=== PATIENT | female | born 1960 | race Caucasian/White ===

== ENCOUNTER 2019-04-13 22:52 | Emergency (ER) | payer SELFPAY ==
[~2019-04-13] VITALS: Ht 172 cm; Wt 98.0 kg
[~2019-04-13 22:52] MED LIST: HYDR1TAB PO; ONDA-43 PO
[2019-04-13] MEDS ORDERED: LACTATED RINGERS 1,000 ML IV ONE (23:27)
[2019-04-13] MEDS ORDERED: KETOROLAC 30 MG/ML VIAL ONE (23:27)
[2019-04-13] MEDS ORDERED: PANTOPRAZOLE 40 MG (PROTONIX) VIAL ONE (23:28)
[2019-04-14] MEDS ORDERED: LACTATED RINGERS 1,000 ML IV ONE (00:01)
[2019-04-14] MEDS ORDERED: PANTOPRAZOLE 40 MG (PROTONIX) VIAL IV ONE (00:15)
[2019-04-14] MEDS ORDERED: KETOROLAC 30 MG/ML VIAL IVP ONE (00:15)
--- NOTE | 2019-04-14 00:16 | ED Abdominal Pain ---
General Chief Complaint: Abdominal/GI Problems Stated Complaint: ABD PAIN Nursing Triage Note: Pt ambulates to RM 5 with c/o epigastric pain x 1 day. Pt reports decreased appetite and intermittent nausea as well. Pt denies any vomiting, fever/chills. 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 Sepsis Screen: No Definite Risk Source of Information: Patient Exam Limitations: No Limitations History of Present Illness Date Seen by Provider: Apr 13, 2019 Time Seen by Provider: 23:10 Initial Comments Patient presents to ER by private conveyance with chief complaint of epigastric abdominal pain starting yesterday progressively getting worse. She took some antacids as well as acid reducers [id number] with no relief of symptoms. She tried some Tylenol and ibuprofen which did give her minimal relief of pain while. She has not had any in the past 8 hours. She says the pain is only gotten worse. She has not had any trauma. Pain is nothing to do with when she eats or drinks. Yesterday she did not eat or drink all day until the evening and the pain persisted. Last oral intake Sprite approximately 2200, one hour prior. She has had 2 sections, ovarian cyst removal as well as a separate hysterectomy and appendectomy. She still has her gallbladder. She has no history of pancreatitis. She drinks only rarely. No history of diabetes or hypertriglyceridemia. She says most of her pain is located in her upper stomach. She says sometimes it radiates dull towards her back. She does not have any tearing sensation. No dysuria, dyspareunia or discharge. She has not had any diarrhea but she did have 3, large, soft, non-watery stools today. Allergies and Home Medications Allergies Coded Allergies: No Known Drug Allergies (Unverified , 06/08/14) Home Medications Ondansetron 8 Mg Tab, 8 MG PO Q4H Prescribed by: LAURA FELIX on 06/08/14 1001 Patient Home Medication List Home Medication List Reviewed: Yes Review of Systems Review of Systems Constitutional: No chills, No fever, No malaise EENTM: No Blurred Vision, No Double Vision Respiratory: Denies Cough, Denies Shortness of Air Cardiovascular: Denies Chest Pain, Denies Edema Gastrointestinal: See HPI, Abdominal Pain; Denies Constipated, Denies Diarrhea, Denies Nausea; Poor Appetite, Poor Fluid Intake Genitourinary: Denies Burning, Denies Discharge Musculoskeletal: No back pain, No joint pain Skin: No pruritus, No rash Psychiatric/Neurological: Denies Headache, Denies Numbness All Other Systems Reviewed Negative Unless Noted: Yes Past Fgciaba-Agamkg-Fqyptz Hx Patient Social History Alcohol Use: Rarely Uses Recreational Drug Use: No Smoking Status: Never a Smoker Recent Foreign Travel: No Contact w/Someone Who Travel: No Recent Infectious Disease Expo: No Past Medical History Abdominal, Hysterectomy Reproductive Disorders: No Physical Exam Vital Signs Vital Signs - First Documented 04/13/19 22:57 Temp 36.8 Pulse 110 Resp 20 B/P (MAP) 122/95 (104) Pulse Ox 99 O2 Delivery Room Air Capillary Refill : Less Than 3 Seconds Height/Weight/BMI Height: 5'8" Weight: 205lbs. oz. 92.636233ve; 33.00 BMI Method:Stated General Appearance: WD/WN, mild distress HEENT: PERRL/EOMI, pharynx normal Neck: full range of motion, normal inspection Respiratory: chest non-tender, lungs clear, normal breath sounds, no respiratory distress, no accessory muscle use Cardiovascular: normal peripheral pulses, regular rate, rhythm Peripheral Pulses: 2+ Radial Pulses (R), 2+ Radial Pulses (L) Gastrointestinal: normal bowel sounds, guarding (right upper quadrant and epigastric region); No rebound; tenderness, other (Parry sign positive. Modestly tender all 4 quadrants) Extremities: normal inspection, no pedal edema, normal capillary refill Neurologic/Psychiatric: no motor/sensory deficits, alert, normal mood/affect, oriented x 3 Skin: normal color, warm/dry Progress/Results/Core Measures Results/Orders Lab Results Laboratory Tests Test 04/13/19 23:01 04/14/19 00:27 Range/Units White Blood Count 15.0 H 4.3-11.0 10^3/uL Red Blood Count 5.03 4.35-5.85 10^6/uL Hemoglobin 14.5 11.5-16.0 G/DL Hematocrit 44 35-52 % Mean Corpuscular Volume 88 80-99 FL Mean Corpuscular Hemoglobin 29 25-34 PG Mean Corpuscular Hemoglobin Concent 33 32-36 G/DL Red Cell Distribution Width 14.2 10.0-14.5 % Platelet Count 215 130-400 10^3/uL Mean Platelet Volume 12.2 H 7.4-10.4 FL Neutrophils (%) (Auto) 68 42-75 % Lymphocytes (%) (Auto) 23 12-44 % Monocytes (%) (Auto) 8 0-12 % Eosinophils (%) (Auto) 1 0-10 % Basophils (%) (Auto) 0 0-10 % Neutrophils # (Auto) 10.2 H 1.8-7.8 X 10^3 Lymphocytes # (Auto) 3.4 1.0-4.0 X 10^3 Monocytes # (Auto) 1.1 H 0.0-1.0 X 10^3 Eosinophils # (Auto) 0.2 0.0-0.3 10^3/uL Basophils # (Auto) 0.0 0.0-0.1 10^3/uL Neutrophils % (Manual) 70 % Lymphocytes % (Manual) 21 % Monocytes % (Manual) 2 % Eosinophils % (Manual) 1 % Basophils % (Manual) 1 % Band Neutrophils 1 % Reactive Lymphocytes 4 % Toxic Granulation 1+ Sodium Level 137 135-145 MMOL/L Potassium Level 4.1 3.6-5.0 MMOL/L Chloride Level 104 98-107 MMOL/L Carbon Dioxide Level 21 21-32 MMOL/L Anion Gap 12 5-14 MMOL/L Blood Urea Nitrogen 11 7-18 MG/DL Creatinine 0.77 0.60-1.30 MG/DL Estimat Glomerular Filtration Rate > 60 BUN/Creatinine Ratio 14 Glucose Level 118 H 70-105 MG/DL Calcium Level 9.8 8.5-10.1 MG/DL Corrected Calcium 9.4 8.5-10.1 MG/DL Total Bilirubin 0.5 0.1-1.0 MG/DL Aspartate Amino Transf (AST/SGOT) 17 5-34 U/L Alanine Aminotransferase (ALT/SGPT) 22 0-55 U/L Alkaline Phosphatase 65 40-136 U/L Total Protein 8.0 6.4-8.2 GM/DL Albumin 4.5 3.2-4.5 GM/DL Lipase 37 8-78 U/L Urine Color YELLOW Urine Clarity SL CLOUDY Urine pH 6.5 5-9 Urine Specific [place] <=1.005 1.016-1.022 Urine Protein NEGATIVE NEGATIVE Urine Glucose (UA) NEGATIVE NEGATIVE Urine Ketones NEGATIVE NEGATIVE Urine Nitrite NEGATIVE NEGATIVE Urine Bilirubin NEGATIVE NEGATIVE Urine Urobilinogen 0.2 < = 1.0 MG/DL Urine Leukocyte Esterase 2+ H NEGATIVE Urine RBC (Auto) NEGATIVE NEGATIVE Urine RBC NONE /HPF Urine WBC 10-25 H /HPF Urine Squamous Epithelial Cells RARE /HPF Urine Crystals NONE /LPF Urine Bacteria TRACE /HPF Urine Casts NONE /LPF Urine Mucus NEGATIVE /LPF Urine Culture Indicated YES My Orders Orders - BYRON PAIZ Ua Culture If Indicated (04/14/19 00:01) Cbc With Automated Diff (04/14/19 00:01) Comprehensive Metabolic Panel (04/14/19 00:01) Lipase (04/14/19 00:01) Ed Iv/Invasive Line Start (04/14/19 00:01) Lactated Ringers (Lr 1000 Ml Iv Solution (04/14/19 00:01) Ketorolac Injection (Toradol Injection) (04/14/19 00:15) Pantoprazole Injection (Protonix Injecti (04/14/19 00:15) Manual Differential (04/13/19 23:01) Urine Culture (04/14/19 00:27) Medications Given in ED Current Medications Medications Dose Ordered Sig/Kristen Route Start Time Stop Time Status Last Admin Dose Admin Ketorolac Tromethamine 30 mg ONCE ONCE IVP 04/14/19 00:15 04/14/19 00:16 DC 04/14/19 00:02 30 MG Lactated Ringer's 1,000 ml @ 0 mls/hr Q0M ONCE IV 04/14/19 00:01 04/14/19 00:03 DC 04/14/19 00:02 0 MLS/HR Pantoprazole 40 mg ONCE ONCE IV 04/14/19 00:15 04/14/19 00:16 DC 04/14/19 00:02 40 MG Vital Signs/I&O 04/13/19 22:57 Temp 36.8 Pulse 110 Resp 20 B/P (MAP) 122/95 (104) Pulse Ox 99 O2 Delivery Room Air Blood Pressure Mean: 104 POS Progress Progress Note #1: Time: 23:20 Progress Note Plan to give the patient a liter of lactated ringers and since she did not receive any benefit from the antacids outpatient will skip a GI cocktail and just give her Toradol. We'll get some analysis and lipase. If she does not improve significantly with the Toradol and we will consider doing a CT of her abdomen pelvis thinking about pancreatitis, gastritis, gastroenteritis. She has aseptic vital signs with a heart rate in the mid 80s, afebrile. Her entire abdomen is tender without mesenteric signs. She has bowel sounds infrequently which is reassuring. Progress Note #2: Time: 00:52 Progress Note The patient's pain was significantly With Toradol. She is now about for 5 out of 10 but slowly edging back in. She has white blood cells in the urine and a urinary tract infection or pyelonephritis is a possibility. Her epigastric pain radiating to the back. The referred from her retroperitoneal space. Her did offer to do a CT scan of her abdomen looking for alternative diagnoses. As a potential for something to help with her pain and just treat bladder infection. To that end we'll put her on Keflex and hydrocodone with strict return precautions. She is happy with this plan. She still has aseptic vital signs and a benign abdominal exam. Departure Impression Primary Impression: UTI (urinary tract infection) Qualified Codes: N30.00 - Acute cystitis without hematuria Additional Impression: Epigastric abdominal pain Disposition: HOME, SELF-CARE Condition: Stable Departure-Patient Inst. Decision time for Depature: 00:53 Referrals: NO,LOCAL PHYSICIAN (PCP/Family) Primary Care Physician Patient Instructions: Acute Abdomen (Belly Pain), Kidney Infection (DC) Add. Discharge Instructions: Drink lots of fluids. Sports drinks are encouraged. Use the Zofran 1 tablet every 6 hours under the tongue as necessary for nausea or vomiting. Use Tylenol 650 mg every 8 hours in addition to ibuprofen 800 mg every 8 hours as needed for pain. Use the hydrocodone one tablet every 6 hours as needed for breakthrough pain. Use the Keflex one capsule twice daily for the next week. The bladder infection. If you're not seeing some improvement by day 3 then you need to return to the ER or follow up with a primary care doctor. Return to the ER sooner if you begin to experience fever above 102.5, intractable pain or other worrisome symptoms. All discharge instructions reviewed with patient and/or family. Voiced understanding. Scripts Hydrocodone Bit/Acetaminophen (Hydrocodone/Acetaminophen 5/325mg Tablet) 1 Tab Tab 1 EACH PO Q4-6HR PRN for PAIN-MODERATE MDD 10 for 3 Days, #14 TAB 0 Refills Prov: BYRON PAIZ 04/14/19 Ondansetron (Ondansetron Odt) 4 Mg Tab.rapdis 4 MG PO Q6H PRN for NAUSEA/VOMITING, #8 TAB 0 Refills Prov: BYRON PAIZ 04/14/19 Cephalexin (Cephalexin) 500 Mg Tablet 500 MG PO BID for 7 Days, #14 TAB 0 Refills Prov: BYRON PAIZ 04/14/19 Work/School Note: Work Release Form Date Seen in the Emergency Department: Apr 14, 2019 Return to Work: Apr 17, 2019 Restrictions: No Restrictions BYRON PAIZ Apr 14, 2019 00:16 POS
[2019-04-14 00:31] LABS: BASOPHILS % (AUTO) 0 % (0-10); EOSINOPHILS # (AUTO) 0.2 10^3/uL (0.0-0.3); EOSINOPHILS % (AUTO) 1 % (0-10); HEMATOCRIT 44 % (35-52); HEMOGLOBIN 14.5 G/DL (11.5-16.0); LYMPHOCYTES # (AUTO) 3.4 X 10^3 (1.0-4.0); LYMPHOCYTES % (AUTO) 23 % (12-44); MEAN CORPUSCULAR HEMOGLOBIN 29 PG (25-34); MEAN CORPUSCULAR HGB CONC 33 G/DL (32-36); MEAN CORPUSCULAR VOLUME 88 FL (80-99); MEAN PLATELET VOLUME 12.2 FL (7.4-10.4); MONOCYTES # (AUTO) 1.1 X 10^3 (0.0-1.0); MONOCYTES % (AUTO) 8 % (0-12); NEUTROPHILS # (AUTO) 10.2 X 10^3 (1.8-7.8); NEUTROPHILS % (AUTO) 68 % (42-75); PLATELET COUNT 215 10^3/uL (130-400); RED CELL DISTRIBUTION WIDTH 14.2 % (10.0-14.5)
[2019-04-14 00:37] LABS: BILIRUBIN,URINE NEGATIVE (NEGATIVE); GLUCOSE, URINE (UA) NEGATIVE (NEGATIVE); KETONES,URINE NEGATIVE (NEGATIVE); LEUKOCYTE ESTERASE ,URINE 2+ (NEGATIVE); NITRITE,URINE NEGATIVE (NEGATIVE); PH,URINE 6.5 (5-9); PROTEIN,URINE NEGATIVE (NEGATIVE)
[2019-04-14 00:41] LABS: COLOR,URINE YELLOW
[2019-04-14 00:46] LABS: ALANINE AMINOTRANSFERASE 22 U/L (0-55); ALBUMIN 4.5 GM/DL (3.2-4.5); ALKALINE PHOSPHATASE 65 U/L (40-136); BILIRUBIN,TOTAL 0.5 MG/DL (0.1-1.0); BUN/CREATININE RATIO 14; CALCIUM 9.8 MG/DL (8.5-10.1); CARBON DIOXIDE 21 MMOL/L (21-32); CHLORIDE 104 MMOL/L (98-107); CREATININE SERUM 0.77 MG/DL (0.60-1.30); GFR ESTIMATED > 60; GLUCOSE 118 MG/DL (70-105); LIPASE 37 U/L (8-78); POTASSIUM 4.1 MMOL/L (3.6-5.0); SODIUM 137 MMOL/L (135-145)
[2019-04-14 00:46] LABS: BACTERIA,URINE TRACE /HPF; CLARITY,URINE SL CLOUDY; SQUAMOUS EPITHELIAL CELL,UR RARE /HPF
[2019-04-14 00:50] LABS: BAND NEUTROPHILS 1 %; BASOPHILS % (MANUAL) 1 %; EOSINOPHILS % (MANUAL) 1 %; LYMPHOCYTES % (MANUAL) 21 %; MONOCYTES % (MANUAL) 2 %; NEUTROPHILS % (MANUAL) 70 %; REACTIVE LYMPHOCYTES 4 %; TOXIC GRANULATION/VACUOLAZATIO 1+
[2019-04-14] MEDS ORDERED: ACHD5005 PO (00:56)
[2019-04-14] MEDS ORDERED: CEPH500T PO (00:56)
[2019-04-14] MEDS ORDERED: ONDA4TAB11 PO (00:56)
[2019-04-14] MEDS ORDERED: cefTRIAXone FOR IV USE 1,000 MG in WATER (STERILE) FOR INJECTION 10 ML IV ONE (01:00)
[2019-04-14] MEDS ORDERED: RX-HYDROCODONE/APAP 5/325 MG #4 TAB PK PO PRN (01:00)
[2019-04-14 01:08] VITALS: BP 130/66
== END 2019-04-14 01:09 | disposition home or self-care (01) ==
LOC: EDUNIT# 22:52 → ER 22:53
DX: N39.0 Urinary tract infection, site not specified (principal); R10.13 Epigastric pain; Z90.710 Acquired absence of both cervix and uterus; Z90.49 Acquired absence of other specified parts of digestive tract
CPT/HCPCS: 36415; 80053; 81000; 83690; 85007; 85027; 87088; 96361; 96374; 96375